=== PATIENT | female | born 1980 | race Caucasian/White ===

== ENCOUNTER 2017-05-14 15:21 | Outpatient (CLI) | payer MEDICAID ==
[~2017-05-14] VITALS: Ht 165.1 cm; Wt 72.7 kg
[2017-05-14 15:41] VITALS: BP 141/80
[2017-05-14 16:52] LABS: MICROSCOPIC NOT IND
[2017-05-14 16:55] LABS: CULTURE INDICATED? NO
== END 2017-05-14 17:27 | disposition home or self-care (01) ==
LOC: LDOP 15:21
PROVIDERS: ATTEND Obstetrics & Gynecology
DX: O26.893 Other specified pregnancy related conditions, third trimester (principal); O76 Abnormality in fetal heart rate and rhythm complicating labor and delivery; Z3A.39 39 weeks gestation of pregnancy
CPT/HCPCS: 59025; 76819; 81003; 99201; G0463

== ENCOUNTER 2017-05-20 10:06 | Inpatient (IN) | payer MEDICAID, OTHER ==
[~2017-05-20] VITALS: Ht 165.1 cm; Wt 72.3 kg
[2017-05-20] MEDS ORDERED: OXYTOCIN 30U/ 0.9% NaCL 500ML 500 ML IV PRN (10:52)
[2017-05-20] MEDS ORDERED: D5%-LACTATED RINGERS 1,000 ML IV SCH (10:52)
[2017-05-20] MEDS ORDERED: OXYTOCIN 30U/ 0.9% NaCL 500ML 500 ML IV ONE (10:52)
[2017-05-20] MEDS ORDERED: FENTANYL PF 100 MCG/2ML IVPush PRN (11:00)
[2017-05-20] MEDS ORDERED: CALCIUM CARBONATE 500 MG TAB.CHEW PO PRN (11:00)
[2017-05-20 11:12] LABS: BASOPHILS # (AUTO) 0.04 x10^3/uL (0-0.1); BASOPHILS % (AUTO) 0 % (0-1); EOSINOPHILS # (AUTO) 0.03 x10^3/uL (0-0.4); EOSINOPHILS % (AUTO) 0 % (1-7); LYMPHOCYTES # (AUTO) 2.06 x10^3/uL (1-3.4); LYMPHOCYTES % (AUTO) 22 % (22-44); MD NO; MEAN CORPUSCULAR HEMOGLOBIN 27.4 pg (27.0-34.8); MEAN CORPUSCULAR HGB CONC 32.9 g/dL (32.4-35.8); MEAN CORPUSCULAR VOLUME 83.1 fL (80-100); MEAN PLATELET VOLUME 7.2 fL (7.4-10.4); MONOCYTES # (AUTO) 0.46 x10^3/uL (0.2-0.8); MONOCYTES % (AUTO) 5 % (2-9); NEUTROPHILS # (AUTO) 6.97 x10^3/uL (1.8-6.8); NEUTROPHILS % (AUTO) 73 % (42-75); PLATELET COUNT 441 x10^3/uL (130-400); RED BLOOD COUNT 4.23 x10^6/uL (3.82-5.3); RED CELL DISTRIBUTION WIDTH 13.7 % (9.6-15.2)
[2017-05-20] MEDS ORDERED: MISOPROSTOL 200 MCG TABLET ONE (11:12)
[2017-05-20] MEDS ORDERED: LIDOCAINE 1%, 10ML ONE (11:12)
[2017-05-20] MEDS ORDERED: NEWBORN KIT ONE (11:12)
[2017-05-20] MEDS ORDERED: OXYTOCIN 30U/ 0.9% NaCL 500ML 500 ML ONE (11:12)
[2017-05-20] MEDS: LACTATED RINGERS 1,000 ML IV SCH ×3 (11:18→23:36)
[2017-05-20 11:29] VITALS: BP 112/75
[2017-05-20] MEDS ORDERED: ONDANSETRON 2MG/ML, 2ML ONE (19:04)
[2017-05-20] MEDS: ONDANSETRON 2MG/ML, 2ML IVPush PRN (19:07)
[2017-05-20] MEDS ORDERED: FENTANYL PF 100 MCG/2ML ONE (23:03)
[2017-05-20] MEDS ORDERED: LIDOCAINE-MPF 2% ,5ML ONE (23:38)
[2017-05-20] MEDS ORDERED: FENTANYL/BUPIV./NS/PF 250 ML EPIDCONT ONE (23:38)
[2017-05-21] MEDS: LACTATED RINGERS 1,000 ML IV SCH ×3 (00:13→16:13)
[2017-05-21] MEDS: FENTANYL/BUPIV./NS/PF 250 ML EPIDCONT SCH ×2 (00:13→21:03)
[2017-05-21] MEDS ORDERED: LACTATED RINGERS 1,000 ML IVBOLUS PRN (00:30)
[2017-05-21] MEDS ORDERED: EPHEDRINE 50 MG/ML, 1ML IVPush PRN (00:30)
[2017-05-21] MEDS ORDERED: NALOXONE 0.4 MG/ML, 1ML IVPush PRN (00:30)
[2017-05-21] MEDS ORDERED: ONDANSETRON 2MG/ML, 2ML ONE (00:33)
[2017-05-21] MEDS: ONDANSETRON 2MG/ML, 2ML IVPush PRN (00:34)
[2017-05-21] MEDS: OXYTOCIN 30U/ 0.9% NaCL 500ML 500 ML IV SCH ×19 (01:10→22:40)
[2017-05-21] MEDS ORDERED: METHYLERGONOVINE 0.2 MG/ML IM PRN (01:30)
[2017-05-21] MEDS ORDERED: CALCIUM CARBONATE 500 MG TAB.CHEW PO PRN (01:30)
[2017-05-21] MEDS ORDERED: MEASLES,MUMPS&RUBELLA VACC/PF 0.5 ML SQ PRN (01:30)
[2017-05-21] MEDS ORDERED: OXYcodone/APAP 5/325MG TABLET PO PRN ×2 (01:30)
[2017-05-21] MEDS ORDERED: OXYTOCIN 10 UNITS/ML, 1ML IM PRN (01:30)
[2017-05-21] MEDS ORDERED: DIPH,PERTUSS(ACELL),TET VAC/PF NC IM-VACC PRN (01:30)
[2017-05-21] MEDS ORDERED: ACETAMINOPHEN 325 MG TABLET PO PRN ×2 (01:30)
[2017-05-21] MEDS ORDERED: MAGNESIUM HYDROXIDE 8%, 30ML UDC PO PRN (01:30)
[2017-05-21] MEDS ORDERED: ONDANSETRON 2MG/ML, 2ML IV PRN (01:30)
[2017-05-21] MEDS ORDERED: OXYTOCIN 30U/ 0.9% NaCL 500ML 500 ML ONE (01:36)
[2017-05-21] MEDS ORDERED: MISOPROSTOL 200 MCG TABLET PR ONE (02:00)
[2017-05-21 04:10] VITALS: BP 109/74
[2017-05-21] MEDS: IBUPROFEN 800 MG TABLET PO PRN ×3 (05:40→21:40)
[2017-05-21 07:30] VITALS: BP 108/72
[2017-05-21 09:50] LABS: MEAN CORPUSCULAR HEMOGLOBIN 27.6 pg (27.0-34.8); MEAN CORPUSCULAR VOLUME 83.6 fL (80-100); MEAN PLATELET VOLUME 7.4 fL (7.4-10.4); PLATELET COUNT 346 x10^3/uL (130-400); RED BLOOD COUNT 3.68 x10^6/uL (3.82-5.3); RED CELL DISTRIBUTION WIDTH 14.3 % (9.6-15.2)
[2017-05-21 10:16] LABS: BASOPHILS # (AUTO) 0.01 x10^3/uL (0-0.1); BASOPHILS % (AUTO) 0 % (0-1); EOSINOPHILS # (AUTO) 0.02 x10^3/uL (0-0.4); EOSINOPHILS % (AUTO) 0 % (1-7); LYMPHOCYTES # (AUTO) 1.26 x10^3/uL (1-3.4); LYMPHOCYTES % (AUTO) 7 % (22-44); MD SCAN; MONOCYTES # (AUTO) 0.81 x10^3/uL (0.2-0.8); MONOCYTES % (AUTO) 5 % (2-9); NEUTROPHILS % (AUTO) 88 % (42-75)
[2017-05-21] MEDS: PRENATAL VIT/IRON/FA 1 EACH TABLET PO SCH (13:25)
[2017-05-21 19:45] VITALS: BP 103/68
[2017-05-21] MEDS: DOCUSATE 100 MG CAPSULE PO PRN (21:40)
[2017-05-22] MEDS: OXYTOCIN 30U/ 0.9% NaCL 500ML 500 ML IV SCH ×9 (00:06→10:08)
[2017-05-22] MEDS: LACTATED RINGERS 1,000 ML IV SCH ×2 (00:13→08:13)
[2017-05-22 00:20] VITALS: BP 101/62
[2017-05-22] MEDS: DOCUSATE 100 MG CAPSULE PO PRN (08:46)
[2017-05-22] MEDS: PRENATAL VIT/IRON/FA 1 EACH TABLET PO SCH (08:46)
[2017-05-22 09:05] VITALS: BP 97/70
[2017-05-22] MEDS ORDERED: IBUP-1222 PO (09:15)
[2017-05-22] MEDS ORDERED: FERR325T5 PO (09:17)
[2017-05-22] MEDS ORDERED: DOCU-131 PO (09:19)
== END 2017-05-22 13:16 | disposition home or self-care (01) | DRG 775 ==
LOC: LDIP 10:06 → 2NW 05-21 03:35
PROVIDERS: ADMIT Obstetrics & Gynecology; ATTEND Obstetrics & Gynecology
PROC: 10E0XZZ Delivery of Products of Conception, External Approach (ICD-10-PCS; principal; 2017-05-21)
PROC: 3E0R3BZ Introduction of Anesthetic Agent into Spinal Canal, Percutaneous Approach (ICD-10-PCS; 2017-05-21)
PROC: 00HU33Z Insertion of Infusion Device into Spinal Canal, Percutaneous Approach (ICD-10-PCS; 2017-05-21)
PROC: 10907ZC Drainage of Amniotic Fluid, Therapeutic from Products of Conception, Via Natural or Artificial Opening (ICD-10-PCS; 2017-05-21)
DX: O80 Encounter for full-term uncomplicated delivery (principal); Z37.0 Single live birth; Z3A.40 40 weeks gestation of pregnancy; Z64.1 Problems related to multiparity
CPT/HCPCS: 36415; 85025; 86850; 86900; J2405; J3010; J2590; J7120; J7121